=== PATIENT | female | born 1995 | race Caucasian/White ===

== ENCOUNTER 2018-10-02 15:47 | Emergency (ER) | payer BC ==
[~2018-10-02] VITALS: Ht 160 cm; Wt 90.7 kg
[~2018-10-02 15:47] MED LIST: CLONAZEPAM 0.50.5 M1 PO; CONCERTA54 MG; DESYREL; FLEXERIL PO; GENERESS FE CH1 EACH; LAMICTAL 25 MG25 M1; LEXAPRO; LITHIUM CARBON150 MG PO; MINIPRESS2 MG PO; OMEPRAZOLE40 MG PO; RISPERDAL 3 MG T3 MG; TOPAMAX 25 MG T25 M1; TRINESSA1 EACH; [UNRECOGNIZED DRUG - OTHER]
[2018-10-02] MEDS ORDERED: ZPAK PO (16:06)
[2018-10-02] MEDS ORDERED: PROAIR HFA8.5 GM INH (16:06)
[2018-10-02] MEDS ORDERED: LAMICTAL 25 MG25 M1 PO (16:06)
[2018-10-02] MEDS ORDERED: ACETAMINOPHEN-1 EAC1 PO (16:06)
[2018-10-02 16:23] VITALS: BP 146/81
== END 2018-10-02 16:23 | disposition home or self-care (01) ==
LOC: M.ERS 15:47
DX: J20.9 Acute bronchitis, unspecified (principal); F41.9 Anxiety disorder, unspecified; F31.9 Bipolar disorder, unspecified; Z90.49 Acquired absence of other specified parts of digestive tract; Z88.2 Allergy status to sulfonamides

== ENCOUNTER 2021-04-16 07:21 | Emergency (ER) | payer BC ==
[~2021-04-16] VITALS: Ht 160 cm; Wt 90.7 kg
[~2021-04-16 07:21] MED LIST changes: +ACETAMINOPHEN-1 EAC1 PO; +LAMICTAL 25 MG25 M1 PO; +PROAIR HFA8.5 GM INH; +ZPAK PO
[2021-04-16] MEDS ORDERED: PROPRANOLOL 20M20 M1 (08:07)
[2021-04-16 12:38] LABS: ABSOLUTE BASOPHILS 0.1 thou/uL (0.0-0.2); ABSOLUTE EOSINOPHILS 0.1 thou/uL (0.0-0.7); ABSOLUTE LYMPHOCYTES 2.4 thou/uL (0.8-5.3); ABSOLUTE MONOCYTES 0.5 thou/uL (0.0-1.2); ABSOLUTE NEUTROPHILS 9.1 thou/uL (1.6-8.1); BASOPHILS 0.8 %; EOSINOPHILS 0.5 %; HEMATOCRIT 41.1 % (37.0-47.0); HEMOGLOBIN 13.7 gm/dL (12.0-15.0); LYMPHOCYTES 19.8 %; MCHC 33.3 g/dL (28.0-37.0); MCV 90.2 fL (80.0-100.0); MONOCYTES 4.5 %; MPV 7.4 fl. (7.2-11.1); NUCLEATED RBCS 0 /100WBC; PLATELET COUNT* 365 thou/uL (150-400); POLYS 74.4 %; RBC 4.55 mil/uL (4.20-5.00); RDW-CV 13.7 % (10.5-14.5); WBC 12.2 thou/uL (4.0-11.0)
[2021-04-16 12:47] LABS: CALCIUM 9.5 mg/dL (8.5-10.1); CREATININE 1.2 mg/dL (0.6-1.3)
[2021-04-16 12:52] LABS: URINE BILIRUBIN NEGATIVE (Negative); URINE BLOOD NEGATIVE (Negative); URINE CLARITY CLEAR; URINE COLOR YELLOW; URINE GLUCOSE-RANDOM NEGATIVE (Negative); URINE KETONES NEGATIVE (Negative); URINE LEUKOCYTES-REFLEX NEGATIVE (Negative); URINE NITRITE-REFLEX NEGATIVE (Negative); URINE PROTEIN NEGATIVE (Negative); URINE UROBILINOGEN 0.2 E.U./dl (0.2-1.0)
[2021-04-16 12:52] LABS: ALBUMIN 4.4 g/dL (3.4-5.0); TOTAL BILIRUBIN 0.4 mg/dL (<0.1-1.0); TOTAL PROTEIN 8.2 g/dL (6.4-8.2)
[2021-04-16] MEDS ORDERED: ONDANSETRON ODT4 MG PO (13:02)
[2021-04-16] MEDS ORDERED: AMOXICILLIN 50500 MG PO (13:02)
[2021-04-16] MEDS ORDERED: PROMETHAZI6.25 MG/5 PO (14:19)
[2021-04-16] MEDS ORDERED: TESSALON PERLE100 MG PO (14:19)
[2021-04-16 14:26] VITALS: BP 155/95
== END 2021-04-16 14:26 | disposition home or self-care (01) ==
LOC: M.ERS 07:21
PROVIDERS: Physician Assistant
DX: R11.2 Nausea with vomiting, unspecified (principal); F12.90 Cannabis use, unspecified, uncomplicated; Z88.2 Allergy status to sulfonamides; Z79.899 Other long term (current) drug therapy; Z90.49 Acquired absence of other specified parts of digestive tract

== ENCOUNTER 2021-06-25 10:37 | Emergency (ER) | payer OTHER ==
[~2021-06-25] VITALS: Ht 160 cm; Wt 90.7 kg
[~2021-06-25 10:37] MED LIST changes: +AMOXICILLIN 50500 MG PO; +ONDANSETRON ODT4 MG PO; +PROMETHAZI6.25 MG/5 PO; +PROPRANOLOL 20M20 M1; +TESSALON PERLE100 MG PO
[2021-06-25] MEDS ORDERED: DESYREL150 MG PO (10:57)
[2021-06-25 11:22] LABS: URINE BILIRUBIN NEGATIVE (Negative); URINE BLOOD NEGATIVE (Negative); URINE CLARITY CLEAR; URINE COLOR YELLOW; URINE GLUCOSE-RANDOM NEGATIVE (Negative); URINE KETONES NEGATIVE (Negative); URINE LEUKOCYTES-REFLEX NEGATIVE (Negative); URINE NITRITE-REFLEX NEGATIVE (Negative); URINE PROTEIN NEGATIVE (Negative); URINE SPECIFIC GRAVITY 1.015 (1.005-1.030); URINE UROBILINOGEN 0.2 E.U./dl (0.2-1.0)
[2021-06-25 11:33] LABS: ABSOLUTE EOSINOPHILS 0.1 thou/uL (0.0-0.7); ABSOLUTE MONOCYTES 0.5 thou/uL (0.0-1.2); ABSOLUTE NEUTROPHILS 5.6 thou/uL (1.6-8.1); BASOPHILS 0.5 %; EOSINOPHILS 1.3 %; HEMATOCRIT 39.8 % (37.0-47.0); HEMOGLOBIN 13.3 gm/dL (12.0-15.0); LYMPHOCYTES 24.1 %; MCH 30.3 pg (26.0-34.0); MCHC 33.4 g/dL (28.0-37.0); MCV 90.5 fL (80.0-100.0); MONOCYTES 5.8 %; MPV 7.5 fl. (7.2-11.1); NUCLEATED RBCS 0 /100WBC; PLATELET COUNT* 327 thou/uL (150-400); POLYS 68.3 %; RBC 4.39 mil/uL (4.20-5.00); RDW-CV 14.1 % (10.5-14.5); WBC 8.2 thou/uL (4.0-11.0)
[2021-06-25 11:41] LABS: CALCIUM 9.3 mg/dL (8.5-10.1); POTASSIUM 4.2 mmol/L (3.5-5.1)
[2021-06-25 11:51] LABS: TOTAL BILIRUBIN 0.6 mg/dL (<0.1-1.0); TOTAL PROTEIN 7.5 g/dL (6.4-8.2)
[2021-06-25] MEDS ORDERED: APAP W/CODEINE1 TA2 PO (14:39)
[2021-06-25 15:10] VITALS: BP 130/81
== END 2021-06-25 15:10 | disposition home or self-care (01) ==
LOC: M.ERS 10:37
PROVIDERS: Physician Assistant
DX: N83.202 Unspecified ovarian cyst, left side (principal); R11.2 Nausea with vomiting, unspecified; R63.0 Anorexia; F41.9 Anxiety disorder, unspecified; F31.9 Bipolar disorder, unspecified; Z90.49 Acquired absence of other specified parts of digestive tract; Z79.899 Other long term (current) drug therapy; Z79.2 Long term (current) use of antibiotics; Z88.2 Allergy status to sulfonamides

== ENCOUNTER → 2021-09-22 | Outpatient (CLI) | payer OTHER ==
[~2021-09-22] MED LIST changes: +APAP W/CODEINE1 TA2 PO; +DESYREL150 MG PO
== END ==
LOC: M.ULTRA 07:54
PROVIDERS: ATTEND Internal Medicine
DX: R10.11 Right upper quadrant pain (principal); K80.20 Calculus of gallbladder without cholecystitis without obstruction